=== PATIENT | female | born 1975 | race Caucasian/White ===

== ENCOUNTER 2016-09-27 07:35 | Emergency (ER) | payer OTHER ==
[2016-09-27 07:49] VITALS: BP 124/87
--- NOTE | 2016-09-27 09:04 | UC ---
Back Pain HPI - HPI Summary HPI Summary: last evening, tripped and strained her low back. History of L2-3 disk and fractured wrist in the past. Used ibuprofen 400mg. Has been able to work. No radiation of pain to leg, no weakness, no bowel or bladder dysfunction. I stop review [id number] shows hdyrocodone and soma on regular basis, sometimes oxycodone. She reports that she last used narcotic pain meds several months ago , could not recall recent fill. - History of Current Complaint Chief Complaint: UCBackPain Stated Complaint: BACK PAIN Time Seen by Provider: 09/27/16 08:48 Hx Obtained From: Patient Hx Last Menstrual Period: 3 years ago Onset/Duration: Sudden Onset, Lasting Days - 1 Severity Initially: Moderate Severity Currently: Moderate Pain Intensity: 8 Pain Scale Used: 0-10 Numeric Back Pain: Is Discrete @ - left low back Character: Aching Aggravating: Movement, Bending Alleviating: Rest, OTC Meds Associated Signs And Symptoms: Positive: Negative - Risk Factors AAA Risk Factors: Hypertension TAD Risk Factors: Hypertension Cauda Equina Risk Factors: Negative Epidural Abscess Risk Factors: Negative - Allergies/Home Medications Allergies/Adverse Reactions: Allergies Allergy/AdvReac Type Severity Reaction Status Date / Time Penicillins Allergy Intermediate Swelling Verified 09/27/16 07:43 Codeine Allergy Nausea And Verified 09/27/16 07:43 Vomiting pollen Allergy Sneezing Uncoded 09/27/16 07:43 PMH/Surg Hx/FS Hx/Imm Hx Cardiovascular History: Hypertension Neurological History: Migraine - says that she takes depakote for this. - Surgical History Surgical History: Yes Surgery Procedure, Year, and Place: right foot FB 1977. NASAL POLYPS - Family History Known Family History: Positive: Cardiac Disease, Other - Alzheimer's. - Social History Occupation: Employed Full-time Lives: With Family Alcohol Use: Rare Substance Use Type: None Smoking Status (MU): Heavy Every Day Tobacco Smoker Type: Cigarettes Amount Used/How Often: 1/2 ppd Household Exposure Type: Cigarettes - Immunization History Most Recent Influenza Vaccination: [id number] Review of Systems Constitutional: Negative Skin: Negative Eyes: Negative ENT: Negative Respiratory: Negative Cardiovascular: Negative Gastrointestinal: Negative Genitourinary: Negative Motor: Negative Neurovascular: Negative Musculoskeletal: Arthralgia, Myalgia Neurological: Negative Psychological: Negative All Other Systems Reviewed And Are Negative: Yes Physical Exam Triage Information Reviewed: Yes Appearance: Well-Appearing, Pain Distress - minimal Vital Signs: Initial Vital Signs Temp 99.2 F 09/27/16 07:44 Pulse 66 09/27/16 07:44 Resp 16 09/27/16 07:44 BP 124/87 09/27/16 07:44 Pulse Ox 100 09/27/16 07:44 Vital Signs Reviewed: Yes Respiratory: Positive: Lungs clear, Normal breath sounds Cardiovascular: Positive: RRR, No Murmur Abdomen Description: Positive: Nontender, No Organomegaly, Soft Musculoskeletal: Positive: ROM Limited @ - lumbar spine flexion to 80 degrees, pain with lateral bending to the left. SLR to 90 degrees bilaterally., Other: - normal heel and toe walking, normal resisted strength. Neurological: Positive: Alert, Muscle Tone Normal, Other: - DTR's 2+ knees and ankles. Psychological: Positive: Other: - mildly flat affect. Skin Exam: Normal Back Pain Course/Dx - Course Course Of Treatment: continue nsaid's (declined toradol injection). flexeril as muscle relaxant. - Differential Dx/Diagnosis Differential Diagnosis/HQI/PQRI: Herniated Disc, Strain, Sprain Provider Diagnoses: low back strain. Discharge - Discharge Plan Condition: Stable Disposition: HOME Prescriptions: Cyclobenzaprine TAB* [Flexeril 10 MG TAB*] 10 mg PO BID PRN #20 tab PRN Reason: Spasms Patient Education Materials: Low Back Strain (ED) Additional Instructions: You can use flexeril up to twice daily as needed. Increase ibuprofen to 600mg three times daily for control of pain.
== END 2016-09-27 09:21 | disposition home or self-care (01) ==
LOC: UCCORT 07:35
DX: S39.012A Strain of muscle, fascia and tendon of lower back, initial encounter (principal); W18.40XA Slipping, tripping and stumbling without falling, unspecified, initial encounter; Y93.9 Activity, unspecified; Y92.9 Unspecified place or not applicable; I10 Essential (primary) hypertension; G43.909 Migraine, unspecified, not intractable, without status migrainosus; Z88.5 Allergy status to narcotic agent; Z88.0 Allergy status to penicillin; F17.210 Nicotine dependence, cigarettes, uncomplicated
CPT/HCPCS: 99212; G0463

== ENCOUNTER 2019-03-06 08:53 | Emergency (ER) | payer OTHER ==
[2019-03-06 09:08] VITALS: BP 146/90
--- NOTE | 2019-03-06 09:17 | UC ---
Complaint Female HPI - HPI Summary HPI Summary: Pt presents with sudden onset of genital "burning" with urination and at rest. Pt has new sexual partner and last had heterosexual intercourse on 03/03/19 and burning began on 03/04/19. Pt denies painless or painful sores/lesions, non unusual vaginal discharge. Pt reports no risk for as she is post menopausal. - History Of Current Complaint Chief Complaint: UCGU Stated Complaint: PERSONAL Time Seen by Provider: 03/06/19 09:03 Hx Obtained From: Patient Hx Last Menstrual Period: doesn't get ?: No Onset/Duration: Sudden Onset, Lasting Days, Still Present Timing: Constant Severity Initially: Mild Severity Currently: Mild Pain Intensity: 2 Character: Dull, Burning Aggravating Factor(s): Urination Alleviating Factor(s): Nothing Associated Signs And Symptoms: Positive: Negative - Risk Factors Ectopic Risk Factor: Negative Ovarian Torsion Risk Factor: Negative - Allergies/Home Medications Allergies/Adverse Reactions: Allergies Allergy/AdvReac Type Severity Reaction Status Date / Time Penicillins Allergy Swelling Verified 03/06/19 09:08 codeine AdvReac Nausea And Verified 03/06/19 09:08 Vomiting pollen Allergy Sneezing Uncoded 03/06/19 09:08 Home Medications: Home Medications Atorvastatin* [Lipitor*] 40 mg PO 1700 03/06/19 [History Confirmed 03/06/19] Carisoprodol TAB* [Soma TAB*] 350 mg PO DAILY PRN 03/06/19 [History Confirmed 03/06/19] Divalproex DR TAB(*) [Depakote DR(*)] 500 mg PO BID 03/06/19 [History Confirmed 03/06/19] Sertraline* [Zoloft*] 50 mg PO BEDTIME 03/06/19 [History Confirmed 03/06/19] PMH/Surg Hx/FS Hx/Imm Hx Previously Healthy: Yes - Surgical History Surgical History: Yes Surgery Procedure, Year, and Place: right foot FB 1977. NASAL POLYPS. TUBES IN EARS 2016. RT WRIST ARTHROSCOPY - Family History Known Family History: Positive: Cardiac Disease, Other - Alzheimer's. - Social History Occupation: Employed Full-time Lives: With Family Alcohol Use: None Substance Use Type: None Smoking Status (MU): Heavy Every Day Tobacco Smoker Type: Cigarettes Amount Used/How Often: 1/2 ppd Have You Smoked in the Last Year: Yes Household Exposure Type: Cigarettes - Immunization History Most Recent Influenza Vaccination: [id number] Review of Systems All Other Systems Reviewed And Are Negative: Yes Constitutional: Positive: Negative Skin: Positive: Negative Eyes: Positive: Negative ENT: Positive: Epistaxis Respiratory: Positive: Negative Cardiovascular: Positive: Negative Gastrointestinal: Positive: Negative Genitourinary: Positive: Dysuria, Vaginal/Penile Burning Motor: Positive: Negative Neurovascular: Positive: Negative Musculoskeletal: Positive: Negative Neurological: Positive: Negative Psychological: Positive: Negative Is Patient Immunocompromised?: No Physical Exam Triage Information Reviewed: Yes Appearance: Well-Appearing Vital Signs: Initial Vital Signs Temp 98.7 F 03/06/19 09:04 Pulse 98 03/06/19 09:04 Resp 16 03/06/19 09:04 BP 146/90 03/06/19 09:04 Pulse Ox 100 03/06/19 09:04 Vital Signs Reviewed: Yes Eye Exam: Normal ENT Exam: Normal Dental Exam: Normal Neck exam: Normal Respiratory Exam: Normal Cardiovascular Exam: Normal Pelvic Exam: Positive: Speculum Exam Normal - pt has shaved pubic hair and clitoris piercing Musculoskeletal Exam: Normal Neurological Exam: Normal Psychological Exam: Normal Skin Exam: Normal Complaint Female Dx - Differential Dx/Diagnosis Differential Diagnosis/HQI/PQRI: Sexually Transmitted Disease, Urinary Tract Infection Provider Diagnosis: Dysuria, Vaginal discomfort, Pain in genitalia Discharge ED - Sign-Out/Discharge Documenting (check all that apply): Patient Departure All imaging exams completed and their final reports reviewed: No Studies - Discharge Plan Condition: Stable Disposition: HOME Patient Education Materials: Vaginitis (ED), Dysuria (ED) Referrals: Sylvain Rea MD [Primary Care Provider] - If Needed Additional Instructions: Please follow up with your PCP as needed. - Billing Disposition and Condition Condition: STABLE Disposition: Home
[2019-03-09 13:35] LABS: Chlamydia trachomatis NAA Negative (Negative); Neisseria gonorrhoeae (GC) NAA Negative (Negative)
== END 2019-03-06 09:52 | disposition home or self-care (01) ==
LOC: UCCORT 08:53
DX: N94.89 Other specified conditions associated with female genital organs and menstrual cycle (principal); R30.0 Dysuria; F17.210 Nicotine dependence, cigarettes, uncomplicated; Z91.09 Other allergy status, other than to drugs and biological substances; Z88.0 Allergy status to penicillin; Z88.5 Allergy status to narcotic agent
CPT/HCPCS: 81003; 87480; 87491; 87510; 87591; 87660; 99212; G0463

== ENCOUNTER 2019-06-11 07:12 | Emergency (ER) | payer BC, OTHER ==
--- OUTSIDE RECORDS SUMMARY | 2019-06-11 07:19 | XMS REPORT | Continuity of Care Document ---
:1975 External Reference #:[id number] Author Name Sylvain Rea M.D. Address [address] [facility] [address] [place] [address] Care Team Providers Name Role Phone Sylvain Rea MD - Family Medicine Care Team Information Pets Salesperson Problems Active Problems Provider Date Benign essential hypertension Carlos Tierney [employer] T[employer] F[employer]ER Onset: Refractory migraine with aura Carlos Tierney [employer] F[employer]ER Onset: Iron deficiency anemia Carlos Tierney [employer] T[employer] F[employer]ER Onset: 06/29/2011 Degeneration of lumbar intervertebral disc Carlos Tierney [employer] T[employer] F[employer]ER Onset: Tobacco user Sylvain Rea M.D. Onset: 01/15/2012 Low back pain Sylvain Rea M.D. Onset: 01/15/2012 Osteoarthritis Sylvain Rea M.D. Onset: 01/15/2012 Acquired scoliosis Sylvain Rea M.D. Onset: 01/15/2012 Mixed hyperlipidemia Sylvain Rea M.D. Onset: 06/12/2012 Myopia Sylvain Rea M.D. Onset: 06/11/2013 Uric acid urolithiasis Sylvain Rea M.D. Onset: 03/01/2014 Peptic reflux disease Sylvain Rea M.D. Onset: 03/01/2014 Indigestion Sylvain Rea M.D. Onset: 03/01/2014 Essential hypertension Sylvain Rea M.D. Onset: 01/03/2015 Essential hypertension Sylvain Rea M.D. Onset: 01/10/2015 Refractory migraine with aura Sylvain Rea M.D. Onset: 04/14/2015 Social History Type Date Description Comments Sex Unknown Tobacco Use Start: Unknown Current Cigarette Smoker 1/2 Pack Daily ETOH Use Occasionally consumes alcohol Tobacco Use Start: Unknown Patient is a current smoker, smokes STARTED 14 YO every day Smoking Status Reviewed: 03/16/19 Patient is a current smoker, smokes STARTED 14 YO every day Allergies, Adverse Reactions, Alerts Active Allergies Reaction Severity Comments Date Penicillin RASH 06/29/2011 Tylenol W/Codeine NAUSEA/VOMITING Can Take Percocet W/O Reaction 2011 Sulfa Antibiotics Bad Rash 05/02/2015 Inactive Allergies NKDA 06/22/2011 Medications Active Medications SIG Qnty Indications Ordering Date Provider Losartan Potassium 1 by mouth 90tabs I10 Sylvain Rea 04/14/2019 100mg Tablets every day M., M.D. Hydrochlorothiazide 1 by mouth 90Tablet I10 Sylvain Rea 04/14/2019 25mg Tablets every day M., M.D. Sertraline HCL 1 by mouth 90tabs F41.9 Sylvain Rea 02/03/2019 50mg Tablets every day M., M.D. F33.9 Divalproex Sodium ER Take One Tablet 90tabs Sylvain Rea, 10/27/2018 500mg By Mouth Every M.D. Tablets ER 24HR Day Cyclobenzaprine HCL Take One Tablet 90tabs Sylvain Rea, 07/01/2017 5mg Tablets By Mouth Three M.D. Times A Day as Needed Carisoprodol 1 by mouth three 45tabs M51.37 Sylvain Rea, 11/13/2016 350mg Tablets times a day M.D. M41.9 M15.9 Flonase Allergy Relief 1 intranasal puff 47.400ml Sylvain Rea, 2015 twice a day M.D. 50mcg/Act Suspension Sumatriptan Succinate take one tablet by 9tabs Sylvain Rea, 2015 mouth every day as M.D. 100mg Tablets needed Atorvastatin Calcium Take One Tablet By 90tabs Álvaro, Ahmad M., 2014 40mg Mouth Every Night M.D. Tablets Omeprazole Take One Capsule By 90caps Sylvain Rea, 03/01/2014 40mg Capsules Mouth Every Day M.D. DR Tineo 1 tab by mouth every 90tabs Sylvain Rea, 04/13/2013 10mg Tablets day as needed M.D. Ibuprofen Take One Tablet By 90tabs M19.90 ÁlvaroSylvain lopez, 10/17/2012 800mg Tablets Mouth Every 6 To 8 M.D. Hours With Food as Needed For Pain Immunizations CPT Code Status Date Vaccine Lot # [id number] Given 01/08/2019 Flu Virus Vaccine, Quadrivalent, Slit Virus, Im [id number] Use 65538 Given 01/07/2018 Flu Vaccine [id number] 23630 Given 12/20/2016 Flu Vaccine [id number] 92866 Given 12/28/2015 Flu Vaccine [id number] 67263 Given 12/29/2014 Flu Vaccine [id number] 80771 Given 04/27/2013 Flu Vaccine [id number] Given 04/25/2012 Flu Vaccine [id number] Given 04/25/2012 Flu Vaccine [id number] Vital Signs Date Vital Result Comment 04/16/2019 10:18am BP Systolic 125 mmHg BP Diastolic 60 mmHg Height 65 inches 5'5" Weight 153.00 lb BMI (Body Mass Index) 25.5 kg/m2 Heart Rate 74 /min Respiratory Rate 16 /min 03/19/2019 2:01pm BP Systolic 125 mmHg BP Diastolic 64 mmHg Height 65 inches 5'5" Weight 150.00 lb BMI (Body Mass Index) 25.0 kg/m2 Heart Rate 64 /min Respiratory Rate 16 /min Results Test Acquired Date Facility Test Result H/L Range Note Laboratory test 03/06/2019 [facility] Gardnerella/Yea SEE RESULT 1 , [address]: Vaginal Dna BELOW GC/Chlamydia 03/06/2019 [facility] GCCHL (SEE NOTE) 3 Amplified Rna Disclaimer Chlamydia trachomatis Carli Negative Negative Neisseria gonorrhoeae (GC) Carli Negative Negative Poc Urinalysis 03/06/2019 [facility] Poc Glucose, Urine Negative Negative Poc Bilirubin, Urine Negative Negative Poc Ketone, Urine Negative Negative Poc Specific [place], Urine 1.010 Normal 1.010-1.030 Poc Blood, Urine 1+ Abnormal Negative Poc pH, Urine 5.0 Normal 5-9 Poc Protein, Urine Negative Negative Poc Urobilinogen, Urine 0.2 Negative Poc Nitrite, Urine Negative Negative Poc Leukocytes, Urine Negative Negative Poc Color, Urine Yellow Poc Clarity, Urine Clear 4 Hepatitis Profile 11/17/2018 [facility] Hepatitis B S Ag NEGATIVE (Neg ) Acute [address] @ (607)- - Hep. B Core Igm @ NEGATIVE (Neg) Hepatitis A AB Igm @ NEGATIVE (Neg) Hepatitis C AB @ NEGATIVE (Neg) 5 Hepatic Function 11/17/2018 [facility] Total Protein 7.5 g/dL (6.4-8.2 ) [address] (607)- - Albumin 4.4 g/dL (3.5-4.6) Globulin 3.1 g/dL (2.7-4.3) Alb/Glob Ratio 1.4 RATIO Bilirubin,Total 0.5 mg/dL (0.0-1.0) Bilirubin,Conjugated 0.1 mg/dL (0.0-0.3) Bilirubin,Unconj. 0.4 mg/dL (0.0-0.7) Alkaline Phosphatase 83 U/L (45-117) Ast (Sgot) 81 U/L High (11-39) Alt (SGPT) 97 U/L High (12-78) CBC With Diff 10/20/2018 [facility] WBC 6.9 10*3/uL (4.1-11.0) [address] (607)- - RBC 4.94 10*6/uL (4.00-5.40) HGB 15.9 g/dL (12.0-16.0) HCT 47.9 % High (36.0-47.0) MCV 97.2 fL High (80.0-95.0) MCH 32.2 pg High (27.0-32.0) MCHC 33.2 g/dL (32.0-36.0) RDW 14.0 % (10.5-14.5) PLT 253 10*3/uL (150-450) MPV 10.2 fL (7.1-10.7) Neut % 49.9 % (35.0-75.0) Lymph % 38.8 % (16.0-52.0) [place] % 9.0 % High (0.0-8.0) Eos % 1.1 % (0.0-5.0) Baso % 1.2 % (0.0-4.0) Neut # 3.4 10*3/uL (1.8-7.7) Lymph # 2.7 10*3/uL (1.2-4.8) [place] # 0.6 10*3/uL (0.0-0.8) Eos # 0.1 10*3/uL (0.0-0.5) Baso # 0.1 10*3/uL (0.0-0.2) CMP 10/20/2018 [facility] Sodium 142 mmol/L (136-145) Freda PAL (059)- - Potassium 4.1 mmol/L (3.6-5.2) Chloride 111 mmol/L High (100-108) Co2 21 mmol/L Low (22-31) Anion Gap 10 mmol/L (7-16) Urea Nitrogen 13 mg/dL (7-24) Creatinine 0.87 mg/dL (0.60-1.00) BUN/Creat Ratio 14.9 RATIO (10.0-20.0) Glucose 92 mg/dL (70-99) Calcium 9.0 mg/dL (8.4-10.2) Total Protein 6.9 g/dL (6.4-8.2) Albumin 4.4 g/dL (3.5-4.6) Globulin 2.5 g/dL Low (2.7-4.3) Alb/Glob Ratio 1.8 RATIO Alkaline Phosphatase 82 U/L (45-117) Bilirubin,Total 0.4 mg/dL (0.0-1.0) Ast (Sgot) 109 U/L High (11-39) Alt (SGPT) 142 U/L High (12-78) GFR >60 ml/min/1.73m2 (>59) GFR ( Amer) >60 ml/min/1.73m2 (>59) GFR Interpretation <SEE NOTE> 6 Lipid 10/20/2018 [facility] Cholesterol @ 220 mg/dL High (0-200) Freda PAL (216)- - Triglyceride @ 191 mg/dL (30-200) HDL Cholesterol @ 47 mg/dL (>40) 7 Chol/HDL Ratio 4.7 RATIO 8 LDL Chol (Calc) 135 mg/dL High (<130) 9 Laboratory 10/20/2018 [facility] TSH,Ultrasensitive @ 1.000 (0.360- 4.170) test finding 113 PRABHAKAR PAL mIU/L (607)- - Hemoglobin 10/20/2018 [facility] Hemoglobin A1c @ 5.8 % (4.0-6.0) 10 A1c 113 PRABHAKAR PAL (607)- - Est Average Glucose 120 mg/dL Laboratory test 10/20/2018 [facility] 25 Hydroxy Vit 26 ng/mL Low (31- 100) 11 finding 113 PRABHAK[address] PAL D @ (607)- - 1 [id number] 2 SEE RESULT BELOW Name: AIMEE COE : [address]: Torsten Thornton MD Acct: [id number] Unit: [id number] AGE: 44 Location: [facility] Re03/06/19 SEX: F Status: DEP ER SPEC: [id number] KALIN: 03/06/[address] [facility] [address]: Summer Read NP REQ: [id number] RECD: 03/06/19 STATUS: KEM HARRIS DR: Sylvain Thornton MD _ SOURCE: VAGINAL SPDESC: ORDERED: Braeden,Yeast DNA, Trich DNA COMMENTS: [id number] Would you like to order Trichomonas Vaginalis RNA testing? Y QUERIES: Would you like to order Trichomonas Vaginalis testing? Yes Procedure Result Reported Site Gardnerella/Yeast: Vaginal DNA Final 03/07/19- 1247 ML Organism 1 Negative Gardnerella Organism 2 Negative Lianne The presence of G. vaginalis, although suggestive, is not diagnostic for bacterial vaginosis. Results should be interpreted in conjuction with other clinical and laboratory data available. Women with vaginal discharge should be evaluated for risk factors of cervicitis and pelvic inflammatory disease, toxic shock syndrome (S.aureus), and if present, evaluated for organisms not included in this assay such as N. gonorrhoeae, C. trachomatis, Mobiluncus, Mycoplasma and/or Prevotella. Mixed infections may occur. The performance of this test on patient specimens collected during or immediately after antimicrobial therapy is unknown. The presence or absence of Lianne species, or G. vaginalis cannot be used as a test for therapeutic success or failure. CONTINUED ON NEXT PAGE DEPARTMENT OF PATHOLOGY, [address] [place] [address] Tristan Duron M.D. Director [facility] # [id number] Specimen: [id number] Collected: 03/06/19 Received: 03/06/19 (Continued) Procedure Result Reported Site Gardnerella/Yeast: Vaginal DNA Final (continued) 03/07/19- 1246 Trichomonas: Vaginal DNA Probe Final 03/07/191246 ML Organism 1 Negative Trichomonas The presence or absence of T. vaginalis cannot be used as a test for therapeutic success or failure. * ML - Main Lab . END OF REPORT DEPARTMENT OF PATHOLOGY, [address] [place] [address] Tristan Duron M.D. Director [facility] # [id number] 3 As with all diagnostic procedures, the laboratory results obtained should be used in conjunction with other clinical information available to the physician, including confirmation by another method, as applicable. 4 Criminal Investigative Agent: [id number] 5 NOT INFECTED WITH HCV, UNLESS RECENT INFECTION IS SUSPECTED OR OTHER EVIDENCE EXISTS TO INDICATE HCV INFECTION. 6 NORMAL KIDNEY FUNCTION OR MILD DISEASE - GFR >OR= 60 CHRONIC KIDNEY DISEASE - GFR 15 - 59 RENAL FAILURE - GFR <15 Est. GFR calculation based on the MDRD study equation, which assumes a steady state for creatinine. Est. GFR should not be used for medication dosing. 7 PER NCEP ATP III GUIDELINES: RESULTS LOWER THAN 40 MG/DL ARE SUGGESTIVE OF INCREASED RISK FOR CORONARY ARTERY DISEASE. RESULTS > OR = TO 60 MG/DL ARE CONSIDERED A NEGATIVE RISK FACTOR. 8 INTERPRETATION OF CHOL-HDL RATIO CHD RISK FEMALE MALE VERY HIGH >8.3 >14.3 HIGH 5.6- 8.3 6.7- 14.3 AVERAGE 3.7- 5.6 4.0- 6.7 BELOW AVERAGE 2.5- 3.7 2.7- 4.0 PROTECTED <2.5 <2.7 9 PER NCEP ATP III GUIDELINES: OPTIMAL < 100 NEAR OPTIMAL 100 - 129 BORDERLINE HIGH 130 - 159 HIGH 160 - 189 VERY HIGH > 189 10 Performed using Siemens Delavan immunoassay. Care must be taken when interpreting HbA1c results in patients with a hemoglobin variant or decreased erythrocyte lifespan. Values 5.7 - 6.4% suggest prediabetes. Values >=6.5% are diagnostic for diabetes. REFERENCE: DIABETES CARE 2018: 41(S13-S27). 11 A REVIEW OF THE LITERATURE SUGGESTS THE FOLLOWING RANGES FOR THE CLASSIFICATION OF 25-OH VITAMIN D STATUS: VITAMIN D STATUS 25-OH VITAMIN D DEFICIENCY <20 NG/ML INSUFFICIENCY 20-30 NG/ML SUFFICIENCY 31 - 100 NG/ML TOXICITY > 100 NG/ML A PEDIATRIC REFERENCE RANGE HAS NOT BEEN ESTABLISHED USING THIS METHOD. Procedures Date Code Description Status 10/20/2018 29137 Visual Screening Test Completed 10/20/2018 44449 EKG Completed 10/20/2018 44155 Audiometry, Bekesy, Screening Completed Medical Devices Description No Information Available Encounters Type Date Location Provider Dx Diagnosis Office Visit 03/19/2019 [facility] Sylvain Rea, I10 Essential ( primary) 2:15p M.D. hypertension R73.01 Impaired fasting glucose E78.2 Mixed hyperlipidemia M41.9 Scoliosis, unspecified M51.37 Other intervertebral disc degeneration, lumbosacral region J44.9 Chronic obstructive pulmonary disease, unspecified F17.210 Nicotine dependence, cigarettes, uncomplicated K21.0 Gastro-esophageal reflux disease with esophagitis M15.9 Polyosteoarthritis, unspecified E55.9 Vitamin D deficiency, unspecified M54.2 Cervicalgia H92.01 Otalgia, right ear M25.571 Pain in right ankle and joints of right foot M25.531 Pain in right wrist M79.661 Pain in right lower leg J30.9 Allergic rhinitis, unspecified L20.9 Atopic dermatitis, unspecified M41.44 Neuromuscular scoliosis, thoracic region G43.119 Migraine with aura, intractable, without status migrainosus S52.591D Oth fx of lower end r radius, subs for clos fx w routn heal K30 Functional dyspepsia N18.2 Chronic kidney disease, stage 2 (mild) N20.1 Calculus of ureter M54.6 Pain in thoracic spine H69.83 Other specified disorders of Eustachian tube, bilateral Z79.891 roasterman (current) use of opiate analgesic B35.9 Dermatophytosis, unspecified S32.008D Oth fracture of unsp lum vertebra, subs for fx w routn heal E79.0 Hyperuricemia w/o signs of inflam arthrit and tophaceous dis M25.561 Pain in right knee N95.1 Menopausal and female climacteric states R94.5 Abnormal results of liver function studies F41.9 Anxiety disorder, unspecified F33.9 Major depressive disorder, recurrent, unspecified Office Visit 02/24/2019 10:00a [facility] Sylvain Rea I10 James ( primary) Ilan Brothers. hypertension R73.01 Impaired fasting glucose E78.2 Mixed hyperlipidemia M41.9 Scoliosis, unspecified M51.37 Other intervertebral disc degeneration, lumbosacral region J44.9 Chronic obstructive pulmonary disease, unspecified F17.210 Nicotine dependence, cigarettes, uncomplicated K21.0 Gastro-esophageal reflux disease with esophagitis M15.9 Polyosteoarthritis, unspecified E55.9 Vitamin D deficiency, unspecified M54.2 Cervicalgia H92.01 Otalgia, right ear M25.571 Pain in right ankle and joints of right foot M25.531 Pain in right wrist M79.661 Pain in right lower leg J30.9 Allergic rhinitis, unspecified L20.9 Atopic dermatitis, unspecified M41.44 Neuromuscular scoliosis, thoracic region G43.119 Migraine with aura, intractable, without status migrainosus S52.591D Oth fx of lower end r radius, subs for clos fx w routn heal K30 Functional dyspepsia N18.2 Chronic kidney disease, stage 2 (mild) N20.1 Calculus of ureter M54.6 Pain in thoracic spine H69.83 Other specified disorders of Eustachian tube, bilateral Z79.891 snf (current) use of opiate analgesic B35.9 Dermatophytosis, unspecified S32.008D Oth fracture of unsp lum vertebra, subs for fx w routn heal E79.0 Hyperuricemia w/o signs of inflam arthrit and tophaceous dis M25.561 Pain in right knee N95.1 Menopausal and female climacteric states R94.5 Abnormal results of liver function studies F41.9 Anxiety disorder, unspecified F33.9 Major depressive disorder, recurrent, unspecified Office Visit 02/03/2019 1:30p [facility] Sylvain Rea I10 James ( primary) Magaly Brothers hypertension R73.01 Impaired fasting glucose E78.2 Mixed hyperlipidemia M41.9 Scoliosis, unspecified M51.37 Other intervertebral disc degeneration, lumbosacral region J44.9 Chronic obstructive pulmonary disease, unspecified F17.210 Nicotine dependence, cigarettes, uncomplicated K21.0 Gastro-esophageal reflux disease with esophagitis M15.9 Polyosteoarthritis, unspecified E55.9 Vitamin D deficiency, unspecified M54.2 Cervicalgia H92.01 Otalgia, right ear M25.571 Pain in right ankle and joints of right foot M25.531 Pain in right wrist M79.661 Pain in right lower leg J30.9 Allergic rhinitis, unspecified L20.9 Atopic dermatitis, unspecified M41.44 Neuromuscular scoliosis, thoracic region G43.119 Migraine with aura, intractable, without status migrainosus S52.591D Oth fx of lower end r radius, subs for clos fx w routn heal K30 Functional dyspepsia N18.2 Chronic kidney disease, stage 2 (mild) N20.1 Calculus of ureter M54.6 Pain in thoracic spine H69.83 Other specified disorders of Eustachian tube, bilateral Z79.891 roasterman (current) use of opiate analgesic B35.9 Dermatophytosis, unspecified S32.008D Oth fracture of unsp lum vertebra, subs for fx w routn heal E79.0 Hyperuricemia w/o signs of inflam arthrit and tophaceous dis M25.561 Pain in right knee N95.1 Menopausal and female climacteric states R94.5 Abnormal results of liver function studies J00 Acute nasopharyngitis [common cold] F41.9 Anxiety disorder, unspecified F33.9 Major depressive disorder, recurrent, unspecified Office Visit 01/08/2019 9:30a [facility] Sylvain Rea I10 James ( primary) Magaly Brothers hypertension R73.01 Impaired fasting glucose E78.2 Mixed hyperlipidemia M41.9 Scoliosis, unspecified M51.37 Other intervertebral disc degeneration, lumbosacral region J44.9 Chronic obstructive pulmonary disease, unspecified F17.210 Nicotine dependence, cigarettes, uncomplicated K21.0 Gastro-esophageal reflux disease with esophagitis M15.9 Polyosteoarthritis, unspecified E55.9 Vitamin D deficiency, unspecified M54.2 Cervicalgia H92.01 Otalgia, right ear M25.571 Pain in right ankle and joints of right foot M25.531 Pain in right wrist M79.661 Pain in right lower leg J30.9 Allergic rhinitis, unspecified L20.9 Atopic dermatitis, unspecified M41.44 Neuromuscular scoliosis, thoracic region G43.119 Migraine with aura, intractable, without status migrainosus S52.591D Oth fx of lower end r radius, subs for clos fx w routn heal K30 Functional dyspepsia N18.2 Chronic kidney disease, stage 2 (mild) N20.1 Calculus of ureter M54.6 Pain in thoracic spine H69.83 Other specified disorders of Eustachian tube, bilateral Z79.891 roasterman (current) use of opiate analgesic B35.9 Dermatophytosis, unspecified S32.008D Oth fracture of unsp lum vertebra, subs for fx w routn heal E79.0 Hyperuricemia w/o signs of inflam arthrit and tophaceous dis M25.561 Pain in right knee N95.1 Menopausal and female climacteric states R94.5 Abnormal results of liver function studies Z23 Encounter for immunization J00 Acute nasopharyngitis [common cold] Office Visit 12/15/2018 9:45a Sylvain El, I10 Essential ( primary) M.D. hypertension R73.01 Impaired fasting glucose E78.2 Mixed hyperlipidemia M41.9 Scoliosis, unspecified M51.37 Other intervertebral disc degeneration, lumbosacral region J44.9 Chronic obstructive pulmonary disease, unspecified F17.210 Nicotine dependence, cigarettes, uncomplicated K21.0 Gastro-esophageal reflux disease with esophagitis M15.9 Polyosteoarthritis, unspecified E55.9 Vitamin D deficiency, unspecified M54.2 Cervicalgia H92.01 Otalgia, right ear M25.571 Pain in right ankle and joints of right foot M25.531 Pain in right wrist M79.661 Pain in right lower leg J30.9 Allergic rhinitis, unspecified L20.9 Atopic dermatitis, unspecified M41.44 Neuromuscular scoliosis, thoracic region G43.119 Migraine with aura, intractable, without status migrainosus S52.591D Oth fx of lower end r radius, subs for clos fx w routn heal K30 Functional dyspepsia N18.2 Chronic kidney disease, stage 2 (mild) N20.1 Calculus of ureter M54.6 Pain in thoracic spine H69.83 Other specified disorders of Eustachian tube, bilateral Z79.891 snf (current) use of opiate analgesic B35.9 Dermatophytosis, unspecified S32.008D Oth fracture of unsp lum vertebra, subs for fx w routn heal E79.0 Hyperuricemia w/o signs of inflam arthrit and tophaceous dis M25.561 Pain in right knee N95.1 Menopausal and female climacteric states R94.5 Abnormal results of liver function studies Office Visit 11/17/2018 11:00a Sylvain El, I10 Essential ( primary) M.D. hypertension R73.01 Impaired fasting glucose E78.2 Mixed hyperlipidemia M41.9 Scoliosis, unspecified M51.37 Other intervertebral disc degeneration, lumbosacral region J44.9 Chronic obstructive pulmonary disease, unspecified F17.210 Nicotine dependence, cigarettes, uncomplicated K21.0 Gastro-esophageal reflux disease with esophagitis M15.9 Polyosteoarthritis, unspecified E55.9 Vitamin D deficiency, unspecified M54.2 Cervicalgia H92.01 Otalgia, right ear M25.571 Pain in right ankle and joints of right foot M25.531 Pain in right wrist M79.661 Pain in right lower leg J30.9 Allergic rhinitis, unspecified L20.9 Atopic dermatitis, unspecified M41.44 Neuromuscular scoliosis, thoracic region G43.119 Migraine with aura, intractable, without status migrainosus S52.591D Oth fx of lower end r radius, subs for clos fx w routn heal K30 Functional dyspepsia N18.2 Chronic kidney disease, stage 2 (mild) N20.1 Calculus of ureter M54.6 Pain in thoracic spine H69.83 Other specified disorders of Eustachian tube, bilateral Z79.891 roasterman (current) use of opiate analgesic B35.9 Dermatophytosis, unspecified S32.008D Oth fracture of unsp lum vertebra, subs for fx w routn heal E79.0 Hyperuricemia w/o signs of inflam arthrit and tophaceous dis M25.561 Pain in right knee N95.1 Menopausal and female climacteric states R94.5 Abnormal results of liver function studies Office Visit 10/20/2018 1:30p Sylvain El, I10 Essential ( primary) M.DKaitlyn hypertension R73.01 Impaired fasting glucose E78.2 Mixed hyperlipidemia M41.9 Scoliosis, unspecified M51.37 Other intervertebral disc degeneration, lumbosacral region J44.9 Chronic obstructive pulmonary disease, unspecified F17.210 Nicotine dependence, cigarettes, uncomplicated K21.0 Gastro-esophageal reflux disease with esophagitis M15.9 Polyosteoarthritis, unspecified E55.9 Vitamin D deficiency, unspecified M54.2 Cervicalgia H92.01 Otalgia, right ear M25.571 Pain in right ankle and joints of right foot M25.531 Pain in right wrist M79.661 Pain in right lower leg J30.9 Allergic rhinitis, unspecified L20.9 Atopic dermatitis, unspecified M41.44 Neuromuscular scoliosis, thoracic region G43.119 Migraine with aura, intractable, without status migrainosus S52.591D Oth fx of lower end r radius, subs for clos fx w routn heal K30 Functional dyspepsia N18.2 Chronic kidney disease, stage 2 (mild) N20.1 Calculus of ureter M54.6 Pain in thoracic spine H69.83 Other specified disorders of Eustachian tube, bilateral Z79.891 roasterman (current) use of opiate analgesic B35.9 Dermatophytosis, unspecified S32.008D Oth fracture of unsp lum vertebra, subs for fx w routn heal E79.0 Hyperuricemia w/o signs of inflam arthrit and tophaceous dis M25.561 Pain in right knee H92.03 Otalgia, bilateral H66.93 Otitis media, unspecified, bilateral J02.9 Acute pharyngitis, unspecified Z00.01 Encounter for general adult medical exam w abnormal findings Z12.31 Encntr screen mammogram for malignant neoplasm of breast N95.1 Menopausal and female climacteric states Assessments Date Code Description Provider 04/16/2019 I10 Essential (primary) hypertension Sylvain Rea M.D. 04/16/2019 R73.01 Impaired fasting glucose Sylvain Rea M.D. 04/16/2019 E78.2 Mixed hyperlipidemia Sylvain Rea M.D. 04/16/2019 M41.9 Scoliosis, unspecified Sylvain Rea M.D. 04/16/2019 M51.37 Other intervertebral disc degeneration, Sylvain Rea M.D. lumbosacral region 04/16/2019 J44.9 Chronic obstructive pulmonary disease, Sylvain Rea M.D. unspecified 04/16/2019 F17.210 Nicotine dependence, cigarettes, Sylvain Rea M.D. uncomplicated 04/16/2019 K21.0 Gastro-esophageal reflux disease with Sylvain Rea M.D. esophagitis 04/16/2019 M15.9 Polyosteoarthritis, unspecified Sylvain Rea M.D. 04/16/2019 E55.9 Vitamin D deficiency, unspecified Sylvain Rea M.D. 04/16/2019 M54.2 Cervicalgia Sylvain Rea M.D. 04/16/2019 H92.01 Otalgia, right ear Sylvain Rea M.D. 04/16/2019 M25.571 Pain in right ankle and joints of right Sylvain Rea M.D. foot 04/16/2019 M25.531 Pain in right wrist Sylvain Rea M.D. 04/16/2019 M79.661 Pain in right lower leg Sylvain Rea M.D. 04/16/2019 J30.9 Allergic rhinitis, unspecified Sylvain Rea M.D. 04/16/2019 L20.9 Atopic dermatitis, unspecified Sylvain Rea M.D. 04/16/2019 M41.44 Neuromuscular scoliosis, thoracic region Sylvain Rea M.D. 04/16/2019 G43.119 Migraine with aura, intractable, without Sylvain Rea M.D. status migrainosus 04/16/2019 S52.591D Other fractures of lower end of right Sylvain Rea M.D. radius, subsequent encounter for closed fracture with routine healing 04/16/2019 K30 Functional dyspepsia Sylvain Rea M.D. 04/16/2019 N18.2 Chronic kidney disease, stage 2 (mild) Sylvain Rea M.D. 04/16/2019 N20.1 Calculus of ureter Sylvain Rea M.D. 04/16/2019 M54.6 Pain in thoracic spine Sylvain Rea M.D. 04/16/2019 H69.83 Other specified disorders of Eustachian Sylvain Rea M.D. tube, bilateral 04/16/2019 Z79.891 roasterman (current) use of opiate analgesic Sylvain Rea M.D. 04/16/2019 B35.9 Dermatophytosis, unspecified Sylvain Rea M.D. 04/16/2019 S32.008D Other fracture of unspecified lumbar Sylvain Rea M.D. vertebra, subsequent encounter for fracture with routine healing 04/16/2019 E79.0 Hyperuricemia without signs of inflammatory Sylvain Rea M.D. arthritis and tophaceous disease 04/16/2019 M25.561 Pain in right knee Sylvain Rea M.D. 04/16/2019 N95.1 Menopausal and female climacteric states Sylvain Rea M.D. 04/16/2019 R94.5 Abnormal results of liver function studies Sylvain Rea M.D. 04/16/2019 F41.9 Anxiety disorder, unspecified Sylvain Rea M.D. 04/16/2019 F33.9 Major depressive disorder, recurrent, Sylvain Rea M.D. unspecified 03/19/2019 I10 Essential (primary) hypertension Sylvain Rea M.D. 03/19/2019 R73.01 Impaired fasting glucose Sylvain Rea M.D. 03/19/2019 E78.2 Mixed hyperlipidemia Sylvain Rea M.D. 03/19/2019 M41.9 Scoliosis, unspecified Sylvain Rea M.D. 03/19/2019 M51.37 Other intervertebral disc degeneration, Sylvain Rea M.D. lumbosacral region 03/19/2019 J44.9 Chronic obstructive pulmonary disease, Sylvain Rea M.D. unspecified 03/19/2019 F17.210 Nicotine dependence, cigarettes, Sylvain Rea M.D. uncomplicated 03/19/2019 K21.0 Gastro-esophageal reflux disease with Sylvain Rea M.D. esophagitis 03/19/2019 M15.9 Polyosteoarthritis, unspecified Sylvain Rea M.D. 03/19/2019 E55.9 Vitamin D deficiency, unspecified Sylvain Rea M.D. 03/19/2019 M54.2 Cervicalgia Sylvain Rea M.D. 03/19/2019 H92.01 Otalgia, right ear Sylvain Rea M.D. 03/19/2019 M25.571 Pain in right ankle and joints of right Sylvain Rea M.D. foot 03/19/2019 M25.531 Pain in right wrist Sylvain Rea M.D. 03/19/2019 M79.661 Pain in right lower leg Sylvain Rea M.D. 03/19/2019 J30.9 Allergic rhinitis, unspecified Sylvain Rea M.D. 03/19/2019 L20.9 Atopic dermatitis, unspecified Sylvain Rea M.D. 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 03/19/2019 G43.119 Migraine with aura, intractable, without Sylvain Rea M.D. status migrainosus 03/19/2019 S52.591D Other fractures of lower end of right Sylvain eRa M.D. radius, subsequent encounter for closed fracture with routine healing 03/19/2019 K30 Functional dyspepsia Sylvain Rea M.D. 03/19/2019 N18.2 Chronic kidney disease, stage 2 (mild) Sylvain Rea M.D. 03/19/2019 N20.1 Calculus of ureter Sylvain Rea M.D. 03/19/2019 M54.6 Pain in thoracic spine Sylvain Rea M.D. 03/19/2019 H69.83 Other specified disorders of Eustachian Sylvain Rea M.D. tube, bilateral 03/19/2019 Z79.891 snf (current) use of opiate analgesic Sylvain Rea M.D. 03/19/2019 B35.9 Dermatophytosis, unspecified Sylvain Rea M.D. 03/19/2019 S32.008D Other fracture of unspecified lumbar Sylvain Rea M.D. vertebra, subsequent encounter for fracture with routine healing 03/19/2019 E79.0 Hyperuricemia without signs of inflammatory Sylvain Rea M.D. arthritis and tophaceous disease 03/19/2019 M25.561 Pain in right knee Sylvain Rea M.D. 03/19/2019 N95.1 Menopausal and female climacteric states Sylvain Rea M.D. 03/19/2019 R94.5 Abnormal results of liver function studies Sylvain Rea M.D. 03/19/2019 F41.9 Anxiety disorder, unspecified Sylvain Rea M.D. 03/19/2019 F33.9 Major depressive disorder, recurrent, Sylvain Rea M.D. unspecified 02/24/2019 I10 Essential (primary) hypertension Sylvain Rea M.D. 02/24/2019 R73.01 Impaired fasting glucose Sylvain Rea M.D. 02/24/2019 E78.2 Mixed hyperlipidemia Sylvain Rea M.D. 02/24/2019 M41.9 Scoliosis, unspecified Sylvain Rea M.D. 02/24/2019 M51.37 Other intervertebral disc degeneration, Sylvain Rea M.D. lumbosacral region 02/24/2019 J44.9 Chronic obstructive pulmonary disease, Sylvain Rea M.D. unspecified 02/24/2019 F17.210 Nicotine dependence, cigarettes, Sylvain Rea M.D. uncomplicated 02/24/2019 K21.0 Gastro-esophageal reflux disease with Sylvain Rea M.D. esophagitis 02/24/2019 M15.9 Polyosteoarthritis, unspecified Sylvain Rea M.D. 02/24/2019 E55.9 Vitamin D deficiency, unspecified Sylvain Rea M.D. 02/24/2019 M54.2 Cervicalgia Sylvain Rea M.D. 02/24/2019 H92.01 Otalgia, right ear Sylvain Rea M.D. 02/24/2019 M25.571 Pain in right ankle and joints of right Sylvain Rea M.D. foot 02/24/2019 M25.531 Pain in right wrist Sylvain Rea M.D. 02/24/2019 M79.661 Pain in right lower leg Sylvain Rea M.D. 02/24/2019 J30.9 Allergic rhinitis, unspecified Sylvain Rea M.D. 02/24/2019 L20.9 Atopic dermatitis, unspecified Sylvain Rea M.D. 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 02/24/2019 G43.119 Migraine with aura, intractable, without Sylvain Rea M.D. status migrainosus 02/24/2019 S52.591D Other fractures of lower end of right Sylvain Rea M.D. radius, subsequent encounter for closed fracture with routine healing 02/24/2019 K30 Functional dyspepsia Sylvain Rea M.D. 02/24/2019 N18.2 Chronic kidney disease, stage 2 (mild) Sylvain Rea M.D. 02/24/2019 N20.1 Calculus of ureter Sylvain Rea M.D. 02/24/2019 M54.6 Pain in thoracic spine Sylvain Rea M.D. 02/24/2019 H69.83 Other specified disorders of Eustachian Sylvain Rea M.D. tube, bilateral 02/24/2019 Z79.891 snf (current) use of opiate analgesic Sylvain Rea M.D. 02/24/2019 B35.9 Dermatophytosis, unspecified Sylvain Rea M.D. 02/24/2019 S32.008D Other fracture of unspecified lumbar Sylvain Rea M.D. vertebra, subsequent encounter for fracture with routine healing 02/24/2019 E79.0 Hyperuricemia without signs of inflammatory Sylvain Rea M.D. arthritis and tophaceous disease 02/24/2019 M25.561 Pain in right knee Sylvain Rea M.D. 02/24/2019 N95.1 Menopausal and female climacteric states Sylvain Rea M.D. 02/24/2019 R94.5 Abnormal results of liver function studies Sylvain Rea M.D. 02/24/2019 F41.9 Anxiety disorder, unspecified Sylvain Rea M.D. 02/24/2019 F33.9 Major depressive disorder, recurrent, Sylvain Rea M.D. unspecified 02/03/2019 I10 Essential (primary) hypertension Sylvain Rea M.D. 02/03/2019 R73.01 Impaired fasting glucose Sylvain Rea M.D. 02/03/2019 E78.2 Mixed hyperlipidemia Sylvain Rea M.D. 02/03/2019 M41.9 Scoliosis, unspecified Sylvain Rea M.D. 02/03/2019 M51.37 Other intervertebral disc degeneration, Sylvain Rea M.D. lumbosacral region 02/03/2019 J44.9 Chronic obstructive pulmonary disease, Sylvain Rea M.D. unspecified 02/03/2019 F17.210 Nicotine dependence, cigarettes, Sylvain Rea M.D. uncomplicated 02/03/2019 K21.0 Gastro-esophageal reflux disease with Sylvain Rea M.D. esophagitis 02/03/2019 M15.9 Polyosteoarthritis, unspecified Sylvain Rea M.D. 02/03/2019 E55.9 Vitamin D deficiency, unspecified Sylvain Rea M.D. 02/03/2019 M54.2 Cervicalgia Sylvain Rea M.D. 02/03/2019 H92.01 Otalgia, right ear Sylvain eRa M.D. 02/03/2019 M25.571 Pain in right ankle and joints of right Sylvain Rea M.D. foot 02/03/2019 M25.531 Pain in right wrist Sylvain Rea M.D. 02/03/2019 M79.661 Pain in right lower leg Sylvain Rea M.D. 02/03/2019 J30.9 Allergic rhinitis, unspecified Sylvain Rea M.D. 02/03/2019 L20.9 Atopic dermatitis, unspecified Sylvain Rea M.D. 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 02/03/2019 G43.119 Migraine with aura, intractable, without Sylvain Rea M.D. status migrainosus 02/03/2019 S52.591D Other fractures of lower end of right Sylvain Rea M.D. radius, subsequent encounter for closed fracture with routine healing 02/03/2019 K30 Functional dyspepsia Sylvain Rea M.D. 02/03/2019 N18.2 Chronic kidney disease, stage 2 (mild) Sylvain Rea M.D. 02/03/2019 N20.1 Calculus of ureter Sylvain Rea M.D. 02/03/2019 M54.6 Pain in thoracic spine Sylvain Rea M.D. 02/03/2019 H69.83 Other specified disorders of Eustachian Sylvain Rea M.D. tube, bilateral 02/03/2019 Z79.891 snf (current) use of opiate analgesic Sylvain Rea M.D. 02/03/2019 B35.9 Dermatophytosis, unspecified Sylvain Rea M.D. 02/03/2019 S32.008D Other fracture of unspecified lumbar Sylvain Rea M.D. vertebra, subsequent encounter for fracture with routine healing 02/03/2019 E79.0 Hyperuricemia without signs of inflammatory Sylvain Rea M.D. arthritis and tophaceous disease 02/03/2019 M25.561 Pain in right knee Sylvain Rea M.D. 02/03/2019 N95.1 Menopausal and female climacteric states Sylvain Rea M.D. 02/03/2019 R94.5 Abnormal results of liver function studies Sylvain Rea M.D. 02/03/2019 J00 Acute nasopharyngitis [common cold] Sylvain Rea M.D. 02/03/2019 F41.9 Anxiety disorder, unspecified Sylvain Rea M.D. 02/03/2019 F33.9 Major depressive disorder, recurrent, Sylvain Rea M.D. unspecified 01/08/2019 I10 Essential (primary) hypertension Sylvain Rea M.D. 01/08/2019 R73.01 Impaired fasting glucose Sylvain Rea M.D. 01/08/2019 E78.2 Mixed hyperlipidemia Sylvain Rea M.D. 01/08/2019 M41.9 Scoliosis, unspecified Sylvain Rea M.D. 01/08/2019 M51.37 Other intervertebral disc degeneration, Sylvain Rea M.D. lumbosacral region 01/08/2019 J44.9 Chronic obstructive pulmonary disease, Sylvain Rea M.D. unspecified 01/08/2019 F17.210 Nicotine dependence, cigarettes, Sylvain Rea M.D. uncomplicated 01/08/2019 K21.0 Gastro-esophageal reflux disease with Sylvain Rea M.D. esophagitis 01/08/2019 M15.9 Polyosteoarthritis, unspecified Sylvain Rea M.D. 01/08/2019 E55.9 Vitamin D deficiency, unspecified Sylvain Rea M.D. 01/08/2019 M54.2 Cervicalgia Sylvain Rea M.D. 01/08/2019 H92.01 Otalgia, right ear Sylvain Rea M.D. 01/08/2019 M25.571 Pain in right ankle and joints of right Sylvain Rea M.D. foot 01/08/2019 M25.531 Pain in right wrist Sylvain Rea M.D. 01/08/2019 M79.661 Pain in right lower leg Sylvain Rea M.D. 01/08/2019 J30.9 Allergic rhinitis, unspecified Sylvain Rea M.D. 01/08/2019 L20.9 Atopic dermatitis, unspecified Sylvain Rea M.D. 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 01/08/2019 G43.119 Migraine with aura, intractable, without Sylvain Rea M.D. status migrainosus 01/08/2019 S52.591D Other fractures of lower end of right Sylvain Rea M.D. radius, subsequent encounter for closed fracture with routine healing 01/08/2019 K30 Functional dyspepsia Sylvain Rea M.D. 01/08/2019 N18.2 Chronic kidney disease, stage 2 (mild) Sylvain Rea M.D. 01/08/2019 N20.1 Calculus of ureter Sylvain Rea M.D. 01/08/2019 M54.6 Pain in thoracic spine Sylvain Rea M.D. 01/08/2019 H69.83 Other specified disorders of Eustachian Sylvain Rea M.D. tube, bilateral 01/08/2019 Z79.891 roasterman (current) use of opiate analgesic Sylvain Rea M.D. 01/08/2019 B35.9 Dermatophytosis, unspecified Sylvain Rea M.D. 01/08/2019 S32.008D Other fracture of unspecified lumbar Sylvain Rea M.D. vertebra, subsequent encounter for fracture with routine healing 01/08/2019 E79.0 Hyperuricemia without signs of inflammatory Sylvain Rea M.D. arthritis and tophaceous disease 01/08/2019 M25.561 Pain in right knee Sylvain Rea M.D. 01/08/2019 N95.1 Menopausal and female climacteric states Sylvain Rea M.D. 01/08/2019 R94.5 Abnormal results of liver function studies Sylvain Rea M.D. 01/08/2019 Z23 Encounter for immunization Sylvain Rea M.D. 01/08/2019 J00 Acute nasopharyngitis [common cold] Sylvain Rea M.D. 12/15/2018 I10 Essential (primary) hypertension Sylvain Rea M.D. 12/15/2018 R73.01 Impaired fasting glucose Sylvain Rea M.D. 12/15/2018 E78.2 Mixed hyperlipidemia Sylvain Rea M.D. 12/15/2018 M41.9 Scoliosis, unspecified Sylvain Rea M.D. 12/15/2018 M51.37 Other intervertebral disc degeneration, Sylvain Rea M.D. lumbosacral region 12/15/2018 J44.9 Chronic obstructive pulmonary disease, Sylvain Rea M.D. unspecified 12/15/2018 F17.210 Nicotine dependence, cigarettes, Sylvain Rea M.D. uncomplicated 12/15/2018 K21.0 Gastro-esophageal reflux disease with Sylvain Rea M.D. esophagitis 12/15/2018 M15.9 Polyosteoarthritis, unspecified Sylvain Rea M.D. 12/15/2018 E55.9 Vitamin D deficiency, unspecified Sylvain Rea M.D. 12/15/2018 M54.2 Cervicalgia Sylvain Rea M.D. 12/15/2018 H92.01 Otalgia, right ear Sylvain Rea M.D. 12/15/2018 M25.571 Pain in right ankle and joints of right Sylvain Rea M.D. foot 12/15/2018 M25.531 Pain in right wrist Sylvain Rea M.D. 12/15/2018 M79.661 Pain in right lower leg Sylvain Rea M.D. 12/15/2018 J30.9 Allergic rhinitis, unspecified Sylvain Rea M.D. 12/15/2018 L20.9 Atopic dermatitis, unspecified Sylvain Rea M.D. 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 12/15/2018 G43.119 Migraine with aura, intractable, without Sylvain Rea M.D. status migrainosus 12/15/2018 S52.591D Other fractures of lower end of right Sylvain Rea M.D. radius, subsequent enc 12/15/2018 K30 Functional dyspepsia Sylvain Rea M.D. 12/15/2018 N18.2 Chronic kidney disease, stage 2 (mild) Sylvain Rea M.D. 12/15/2018 N20.1 Calculus of ureter Sylvain Rea M.D. 12/15/2018 M54.6 Pain in thoracic spine Sylvain Rea M.D. 12/15/2018 H69.83 Other specified disorders of Eustachian Sylvain Rea M.D. tube, bilateral 12/15/2018 Z79.891 snf (current) use of opiate analgesic Sylvain Rea M.D. 12/15/2018 B35.9 Dermatophytosis, unspecified Sylvain Rea M.D. 12/15/2018 S32.008D Other fracture of unspecified lumbar Sylvain Rea M.D. vertebra, subsequent en 12/15/2018 E79.0 Hyperuricemia without signs of inflammatory Sylvain Rea M.D. arthritis and to 12/15/2018 M25.561 Pain in right knee Sylvain Rea M.D. 12/15/2018 N95.1 Menopausal and female climacteric states Sylvain Rea M.D. 12/15/2018 R94.5 Abnormal results of liver function studies Sylvain Rea M.D. 11/17/2018 I10 Essential (primary) hypertension Sylvain Rea M.D. 11/17/2018 R73.01 Impaired fasting glucose Sylvain Rea M.D. 11/17/2018 E78.2 Mixed hyperlipidemia Sylvain Rea M.D. 11/17/2018 M41.9 Scoliosis, unspecified Sylvain Rea M.D. 11/17/2018 M51.37 Other intervertebral disc degeneration, Sylvain Rae M.D. lumbosacral region 11/17/2018 J44.9 Chronic obstructive pulmonary disease, Sylvain Rea M.D. unspecified 11/17/2018 F17.210 Nicotine dependence, cigarettes, Sylvain Rea M.D. uncomplicated 11/17/2018 K21.0 Gastro-esophageal reflux disease with Sylvain Rea M.D. esophagitis 11/17/2018 M15.9 Polyosteoarthritis, unspecified Sylvain Rea M.D. 11/17/2018 E55.9 Vitamin D deficiency, unspecified Sylvain Rea M.D. 11/17/2018 M54.2 Cervicalgia Sylvain Rea M.D. 11/17/2018 H92.01 Otalgia, right ear Sylvain Rea M.D. 11/17/2018 M25.571 Pain in right ankle and joints of right Sylvain Rea M.D. foot 11/17/2018 M25.531 Pain in right wrist Sylvain Rea M.D. 11/17/2018 M79.661 Pain in right lower leg Sylvain Rea M.D. 11/17/2018 J30.9 Allergic rhinitis, unspecified Sylvain Rea M.D. 11/17/2018 L20.9 Atopic dermatitis, unspecified Sylvain Rea M.D. 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 11/17/2018 G43.119 Migraine with aura, intractable, without Sylvain Rea M.D. status migrainosus 11/17/2018 S52.591D Other fractures of lower end of right Sylvain Rea M.D. radius, subsequent enc 11/17/2018 K30 Functional dyspepsia Sylvain Rea M.D. 11/17/2018 N18.2 Chronic kidney disease, stage 2 (mild) Sylvain Rea M.D. 11/17/2018 N20.1 Calculus of ureter Sylvain Rea M.D. 11/17/2018 M54.6 Pain in thoracic spine Sylvain Rea M.D. 11/17/2018 H69.83 Other specified disorders of Eustachian Sylvain Rea M.D. tube, bilateral 11/17/2018 Z79.891 snf (current) use of opiate analgesic Sylvain Rea M.D. 11/17/2018 B35.9 Dermatophytosis, unspecified Sylvain Rea M.D. 11/17/2018 S32.008D Other fracture of unspecified lumbar Sylvain Rea M.D. vertebra, subsequent en 11/17/2018 E79.0 Hyperuricemia without signs of inflammatory Sylvain Rea M.D. arthritis and to 11/17/2018 M25.561 Pain in right knee Sylvain Rea M.D. 11/17/2018 N95.1 Menopausal and female climacteric states Sylvain Rea M.D. 11/17/2018 R94.5 Abnormal results of liver function studies Sylvain Rea M.D. 10/20/2018 I10 Essential (primary) hypertension Sylvain Rea M.D. 10/20/2018 R73.01 Impaired fasting glucose Sylvain Rea M.D. 10/20/2018 E78.2 Mixed hyperlipidemia Sylvain Rea M.D. 10/20/2018 M41.9 Scoliosis, unspecified Sylvain Rea M.D. 10/20/2018 M51.37 Other intervertebral disc degeneration, Sylvain Rea M.D. lumbosacral region 10/20/2018 J44.9 Chronic obstructive pulmonary disease, Sylvain Rea M.D. unspecified 10/20/2018 F17.210 Nicotine dependence, cigarettes, Sylvain Rea M.D. uncomplicated 10/20/2018 K21.0 Gastro-esophageal reflux disease with Sylvain Rea M.D. esophagitis 10/20/2018 M15.9 Polyosteoarthritis, unspecified Sylvain Rea M.D. 10/20/2018 E55.9 Vitamin D deficiency, unspecified Sylvain Rea M.D. 10/20/2018 M54.2 Cervicalgia Sylvain Rea M.D. 10/20/2018 H92.01 Otalgia, right ear Sylvain Rea M.D. 10/20/2018 M25.571 Pain in right ankle and joints of right Sylvain Rea M.D. foot 10/20/2018 M25.531 Pain in right wrist Sylvain Rea M.D. 10/20/2018 M79.661 Pain in right lower leg Sylvain Rea M.D. 10/20/2018 J30.9 Allergic rhinitis, unspecified Sylvain Rea M.D. 10/20/2018 L20.9 Atopic dermatitis, unspecified Sylvain Rea M.D. 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 10/20/2018 G43.119 Migraine with aura, intractable, without Sylvain Rea M.D. status migrainosus 10/20/2018 S52.591D Other fractures of lower end of right Sylvain Rea M.D. radius, subsequent enc 10/20/2018 K30 Functional dyspepsia Sylvain Rea M.D. 10/20/2018 N18.2 Chronic kidney disease, stage 2 (mild) Sylvain Rea M.D. 10/20/2018 N20.1 Calculus of ureter Sylvain Rea M.D. 10/20/2018 M54.6 Pain in thoracic spine Sylvain Rea M.D. 10/20/2018 H69.83 Other specified disorders of Eustachian Sylvain Rea M.D. tube, bilateral 10/20/2018 Z79.891 roasterman (current) use of opiate analgesic Sylvain Rea M.D. 10/20/2018 B35.9 Dermatophytosis, unspecified ÁlvaroSylvain lopez M.D. 10/20/2018 S32.008D Other fracture of unspecified lumbar Sylvain Rea M.D. vertebra, subsequent en 10/20/2018 E79.0 Hyperuricemia without signs of inflammatory Sylvain Rea M.D. arthritis and to 10/20/2018 M25.561 Pain in right knee Sylvain Rea M.D. 10/20/2018 H92.03 Otalgia, bilateral Sylvain Rea M.D. 10/20/2018 H66.93 Otitis media, unspecified, bilateral Sylvain Rea M.D. 10/20/2018 J02.9 Acute pharyngitis, unspecified Sylvain Rea M.D. 10/20/2018 Z00.01 Encounter for general adult medical Sylvain Rea M.D. examination with abnorma 10/20/2018 Z12.31 Encounter for screening mammogram for Sylvain Rea M.D. malignant neoplasm of 10/20/2018 N95.1 Menopausal and female climacteric states Sylvain Rea M.D. 10/15/2018 I10 Essential (primary) hypertension Sylvain Rea M.D. 10/15/2018 R73.01 Impaired fasting glucose Sylvain Rea M.D. 10/15/2018 E78.2 Mixed hyperlipidemia Sylvain Rea M.D. 10/15/2018 M41.9 Scoliosis, unspecified Sylvain Rea M.D. 10/15/2018 M51.37 Other intervertebral disc degeneration, Sylvain Rea M.D. lumbosacral region 10/15/2018 J44.9 Chronic obstructive pulmonary disease, Sylvain Rae M.D. unspecified 10/15/2018 F17.210 Nicotine dependence, cigarettes, Sylvain Rea M.D. uncomplicated 10/15/2018 K21.0 Gastro-esophageal reflux disease with Sylvain Rea M.D. esophagitis 10/15/2018 M15.9 Polyosteoarthritis, unspecified Sylvain Rea M.D. 10/15/2018 E55.9 Vitamin D deficiency, unspecified Sylvain Rea M.D. 10/15/2018 M54.2 Cervicalgia Sylvain Rea M.D. 10/15/2018 H92.01 Otalgia, right ear Sylvain Rea M.D. 10/15/2018 M25.571 Pain in right ankle and joints of right Sylvain Rea M.D. foot 10/15/2018 M25.531 Pain in right wrist Sylvain Rea M.D. 10/15/2018 M79.661 Pain in right lower leg Sylvain Rea M.D. 10/15/2018 J30.9 Allergic rhinitis, unspecified Sylvain Rea M.D. 10/15/2018 L20.9 Atopic dermatitis, unspecified Sylvain Rea M.D. 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 10/15/2018 G43.119 Migraine with aura, intractable, without Sylvain Rea M.D. status migrainosus 10/15/2018 S52.591D Other fractures of lower end of right Sylvain Rea M.D. radius, subsequent enc 10/15/2018 K30 Functional dyspepsia Sylvain Rea M.D. 10/15/2018 N18.2 Chronic kidney disease, stage 2 (mild) Sylvain Rea M.D. 10/15/2018 N20.1 Calculus of ureter Sylvain Rea M.D. 10/15/2018 M54.6 Pain in thoracic spine Sylvain Rea M.D. 10/15/2018 H69.83 Other specified disorders of Eustachian Sylvain Rea M.D. tube, bilateral 10/15/2018 Z79.891 snf (current) use of opiate analgesic Sylvain Rea M.D. 10/15/2018 B35.9 Dermatophytosis, unspecified Sylvain Rea M.D. 10/15/2018 S32.008D Other fracture of unspecified lumbar Sylvain Rea M.D. vertebra, subsequent en 10/15/2018 E79.0 Hyperuricemia without signs of inflammatory Sylvain Rea M.D. arthritis and to 10/15/2018 M25.561 Pain in right knee Sylvain Rea M.D. 10/15/2018 H92.03 Otalgia, bilateral Sylvain Rea M.D. 10/15/2018 H66.93 Otitis media, unspecified, bilateral Sylvain Rea M.D. 10/15/2018 J02.9 Acute pharyngitis, unspecified Sylvain Rea M.D. Plan of Treatment 04/16/2019 - Sylvain Rea M.D.I10 Essential (primary) hypertensionComments: CHECK BP TIW ( PRN)DIET AND FLUID COUNSELING LOW SODIUM DIETWT LOSSF/U LAB SMOKING [id number] Impaired fasting glucoseComments:F/U [facility] AN HS PRNLOW GLUCOSE DIETE78.2 Mixed hyperlipidemiaComments:DIET REVIEWED CONTINUE DIETWT LOSSF/U LAB FBWM41.9 Scoliosis, unspecifiedComments:EXERCISE/HEAT/ MESSAGETYLENOL OR MOTRIN PRNAVOID HEAVY LIFTINGWT LOSS DUR VCRYGRFW39.37 Other intervertebral disc degeneration, lumbosacral regionComments:EXERCISE/ HEAT /MESSAGEAVOID HEAVY LIFTING WT LOSSTYLENOL OR MOTRIN PRNJ44.9 Chronic obstructive pulmonary disease, unspecifiedComments:INCREASE PO FLUIDRESTSMOKING MQMTGXSNBL11.210 Nicotine dependence, cigarettes, uncomplicatedComments:SMOKING CESSATION [id number] Gastro-esophageal reflux disease with esophagitisComments:AVOID CAFFEINE, ETOH AND SPICY FOODSTUMS OR MYLANTA PRN CALL WITH PROBLEMS OR CONCERNSSMOKING ABESUIKIBC68.9 Polyosteoarthritis, unspecifiedComments:EXERCISE/HEAT/MESSAGETYLENOL OR MOTRIN PRNAVOID HEAVY LIFTINGWT LOSS DUR TGKENLHE21.9 Vitamin D deficiency, unspecifiedComments: INCREASE EXPOSURE TO SUNREVIEW OF DIETM54.2 CervicalgiaComments:EXERCISE/HEAT / MESSAGEAVOID HEAVY LIFTING WT LOSSTYLENOL OR MOTRIN PRN DUR [id number] Otalgia, right earComments:INCREASE PO FLUIDTYLENOL OR MOTRIN PRNANTIHISTAMINE PRNRESTSMOKING CESSATION [id number] Pain in right ankle and joints of right footComments:EXERCISE/HEAT/MESSAGETYLENOL OR MOTRIN PRNACE WRAP PRN USE SHOES INSERTS/ PDZTDHVM27.531 Pain in right wristComments:RESOLVED S/P BWPQGAGJ72.661 Pain in right lower legComments:TYLENOL OR MOTRIN PRN EXERCISE/ HEAT/MESSAGE DUR INSRVINQ96.9 Allergic rhinitis, unspecifiedComments:INCREASE PO FLUID USE ANTIHISTAMINE PRN SECOND HAND SMOKING AVOIDANCE SMOKING [id number] Atopic dermatitis, unspecifiedComments:SKIN CARE INSTRUCTIONS LOTION OR BABY OIL 2-3 APPLICATION PER DAYUSE MOISTURIZING SOAPAVOID PROLONGED WATER EXPOSUREAVOID USING HOT WATER IN HJRXAXH04.44 Neuromuscular scoliosis, thoracic regionComments:EXERCISE/HEAT/MESSAGETYLENO OR MOTRIN PRNAVOID HEAVY LIFTINGWT LOSSG43.119 Migraine with aura, intractable, without status migrainosusComments:COUNCELLING AND REASSURANCE F/U WITH NEUROLOGY PRNS52.591D Other fractures of lower end of right radius, subsequent encounter for closed fracture withroutine healingComments:F/U WITH ORTHO PRNK30 Functional dyspepsiaComments:AVOID CAFFEINE, ETOH AND SPICY FOODSTUMS OR MYLANTA PRN CALL WITH PROBLEMS OR KAIOKNDQO95.2 Chronic kidney disease, stage 2 (mild)Comments: DIET REVIEWED MEDICATION REVIEWEDF/U LABN20.1 Calculus of ureterComments:F/U WITH UROLOGYSTRAIN ALL URINE PRNM54.6 Pain in thoracic spineComments:EXERCISE/ HEAT /MESSAGEAVOID HEAVY LIFTING WT LOSSTYLENOL OR MOTRIN PRNH69.83 Other specified disorders of Eustachian tube, bilateralComments:FOLLOW WITH ENTZ79.891 snf (current) use of opiate analgesicComments:REVIEWED MEDICATIONS AND DIRECTIONS WITH PATIENT DUR TITMLZVD33.9 Dermatophytosis, unspecifiedComments:KEEP HANDS DRY AND USE MEDICATION MLLOJLSJG25.008D Other fracture of unspecified lumbar vertebra, subsequent encounter for fracture with routine healingComments:CONTINUE WITH RXEXERCISE/HEAT /MESSAGEAVOID HEAVY LIFTING WT LOSSTYLENOL OR MOTRIN PRNE79.0 Hyperuricemia without signs of inflammatory arthritis and tophaceous diseaseComments:DIET COUNCELLINGFS QAC AND HS PRNCHECK HgA1cQ 6-12 MON.M25.561 Pain in right kneeComments:EXERCISE/ HEAT /MESSAGEAVOID HEAVY LIFTING WT LOSSTYLENOL OR MOTRIN PRN DUR [id number] Menopausal and female climacteric statesComments:CALCIUM SUPLEMENT STABLE/ [id number] Abnormal results of liver function studiesComments:ASYMPTOMATIC AND STABLEF/ULABF/U WITH GI PRNAVOID ETOH [id number] Anxiety disorder, unspecifiedComments:COUNCELLING AND REASSURANCE RELAXATION TECHNIQUESAVOID STRESSORS IN LIFE AVOID ALL ENERGY/HIGH CAFFEINE [id number] Major depressive disorder, recurrent, unspecifiedComments:COUNCELLING AND REASSURANCE RELAXATION TECHNIQUESAVOID STRESSORS IN LIFE AVOID ALL ENERGY/HIGH CAFFEINE DRINKS Functional Status Functional Condition Comment Date Status Glasses Active Soft contacts Active Mental Status Description No Information Available Referrals Description No Information Available
[2019-06-11 07:26] VITALS: BP 118/84
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
== END 2019-06-11 08:24 | disposition home or self-care (01) ==
LOC: UCCORT 07:12
DX: M25.552 Pain in left hip (principal); W00.0XXA Fall on same level due to ice and snow, initial encounter; Y92.9 Unspecified place or not applicable; F17.210 Nicotine dependence, cigarettes, uncomplicated; Z88.0 Allergy status to penicillin; Z88.5 Allergy status to narcotic agent; Z91.09 Other allergy status, other than to drugs and biological substances
CPT/HCPCS: 99211; G0463